=== PATIENT | female | born 1945 | race Caucasian/White ===

== ENCOUNTER → 2016-11-21 | Outpatient (CLI) | payer OTHER | LOC: US 11-18 13:00 | DX: N18.3 Chronic kidney disease, stage 3 (moderate) (principal) ==

== ENCOUNTER → 2020-10-05 | Outpatient (CLI) | payer OTHER ==
[~2020-10-05] MED LIST: AMLODIPINE BESYL5 MG PO; ASPIR 8181 MG PO; AZOR 5-40 MG T1 EACH PO; BYSTOLIC5 MG PO; NEURONTIN600 MG PO; PROTONIX 40 MG40 M1 PO; SYNTHROID88 MCG PO
== END ==
LOC: HEART 5 10:00
DX: R00.2 Palpitations (principal)

== ENCOUNTER → 2020-11-23 | Outpatient (CLI) | payer OTHER | LOC: EXRD 15:48 | DX: R22.42 Localized swelling, mass and lump, left lower limb (principal); M79.662 Pain in left lower leg; M79.89 Other specified soft tissue disorders | CPT/HCPCS: 93971 ==

== ENCOUNTER → 2021-06-12 | Outpatient (CLI) | payer OTHER | LOC: MAMO 09:37 | DX: Z12.31 Encounter for screening mammogram for malignant neoplasm of breast (principal) | CPT/HCPCS: 77063; 77067 ==

== ENCOUNTER 2021-06-29 14:57 | Emergency (ER) | payer OTHER | END 2021-06-29 16:32 | disposition home or self-care (01) | LOC: ER1 14:57 | DX: U07.1 COVID-19 (principal); I10 Essential (primary) hypertension | CPT/HCPCS: 99283 ==

== ENCOUNTER → 2021-06-29 | Outpatient (CLI) | payer OTHER ==
[2021-06-29 12:20] LABS: BORDETELLA PARAPERTUSSIS Not Detected (Not Detectd); BORDETELLA PERTUSSIS Not Detected (Not Detectd); CHLAMYDIA PNEUMONIAE Not Detected (Not Detectd); CORONAVIRUS HKU1 Not Detected (Not Detectd); CORONAVIRUS NL63 Not Detected (Not Detectd); CORONAVIRUS OC43 Not Detected (Not Detectd); CORONOAVIRUS 229E Not Detected (Not Detectd); HUMAN METAPNEUMOVIRUS Not Detected (Not Detectd); HUMAN RHINOVIRUS/ENTEROVIRUS Not Detected (Not Detectd); INFLUENZA A Not Detected (Not Detectd); INFLUENZA B Not Detected (Not Detectd); MYCOPLASMA PNEUMONIAE Not Detected (Not Detectd); PARAINFLUENZA VIRUS 1 Not Detected (Not Detectd); PARAINFLUENZA VIRUS 2 Not Detected (Not Detectd); PARAINFLUENZA VIRUS 3 Not Detected (Not Detectd); PARAINFLUENZA VIRUS 4 Not Detected (Not Detectd); RESPIRATORY SYNCYTIAL VIRUS Not Detected (Not Detectd)
[2021-06-29 13:52] LABS: SARS-CoV-2 DETECTED (Not Detectd)
== END ==
LOC: RAD 11:40
PROVIDERS: Internal Medicine
DX: R05.9 Cough, unspecified (principal); Z20.822 Contact with and (suspected) exposure to COVID-19
CPT/HCPCS: 71046; 87633

== ENCOUNTER → 2021-07-02 | Outpatient (CLI) | payer OTHER ==
[~2021-07-02] VITALS: Ht 152.4 cm; Wt 81.6 kg
== END ==
LOC: EROP 14:00
DX: U07.1 COVID-19 (principal); Z23 Encounter for immunization
CPT/HCPCS: M0247; Q0247

== ENCOUNTER → 2021-07-04 | Outpatient (CLI) | payer OTHER ==
[2021-07-04 13:14] LABS: HEMOGLOBIN 12.2 gm/dl (12.3-15.3); RED BLOOD COUNT 4.1 M/UL (4.00-5.10); WHITE BLOOD COUNT 4.8 K/UL (4.5-11.0)
== END ==
LOC: RAD 12:29
PROVIDERS: Physician Assistant
DX: R05.9 Cough, unspecified (principal); U07.1 COVID-19
CPT/HCPCS: 36415; 71046; 80048; 83605; 85025

== ENCOUNTER → 2021-07-04 | Outpatient (CLI) | payer OTHER | LOC: EROP 14:00 → ER1 17:38 → EDSTATUS 17:51 | PROVIDERS: Internal Medicine | DX: E86.0 Dehydration (principal) | CPT/HCPCS: 80048; 96360; 96361; J1335; J7030 ==

== ENCOUNTER 2021-07-10 14:58 | Emergency (ER) | payer OTHER | END 2021-07-10 21:00 | disposition home or self-care (01) | LOC: ER1 14:58 | PROVIDERS: Student in an Organized Health Care Education/Training Program | DX: E86.0 Dehydration (principal); I12.9 Hypertensive chronic kidney disease with stage 1 through stage 4 chronic kidney disease, or unspecified chronic kidney disease; N18.9 Chronic kidney disease, unspecified; Z88.5 Allergy status to narcotic agent | CPT/HCPCS: 80048; 99284 ==